=== PATIENT | female | born 1965 | race Caucasian/White ===

== ENCOUNTER 2017-10-15 22:23 | Observation (INO) | payer OTHER ==
[~2017-10-15] VITALS: Ht 177.8 cm; Wt 117.0 kg
[~2017-10-15 22:23] MED LIST: PROPOFOL 10 MG/ML, 20ML ONE; ROCURONIUM 10MG/ML,5ML ONE; SUCCINYLCHOLINE 20 MG/ML, 10ML ONE
[2017-10-15] MEDS ORDERED: LISI1TAB7 PO (22:40)
[2017-10-15] MEDS ORDERED: FENTANYL PF 250 MCG/5ML ONE (23:57)
[2017-10-15] MEDS ORDERED: MIDAZOLAM 1 MG/ML, 2ML ONE (23:57)
[2017-10-16] MEDS ORDERED: LIDOCAINE/PF 1%, 30ML ONE (00:05)
[2017-10-16] MEDS ORDERED: EPINEPHRINE 1 MG/ML, 1ML ONE (00:06)
[2017-10-16] MEDS ORDERED: OXYMETAZOLINE NASAL SPRAY 0.05%, 15ML ONE (00:10)
[2017-10-16] MEDS ORDERED: LIDOCAINE 1%, 20ML INFIL ONE (00:30)
[2017-10-16] MEDS ORDERED: BACITRACIN OINT 500U/GM, 15 GM ONE (00:49)
[2017-10-16] MEDS ORDERED: ACETAMINOPHEN 650 MG/20.3 ML UDC ONE ×2 (01:12→01:13)
[2017-10-16] MEDS ORDERED: ALBUTEROL SULFATE 2.5 MG/3 ML NPPB PRN (01:30)
[2017-10-16] MEDS ORDERED: ONDANSETRON ODT 8 MG PO PRN (01:30)
[2017-10-16] MEDS ORDERED: FENTANYL PF 100 MCG/2ML IV PRN (01:30)
[2017-10-16] MEDS ORDERED: ACETAMINOPHEN 325 MG TABLET PO PRN (01:30)
[2017-10-16] MEDS ORDERED: MORPHINE SULFATE 4 MG/ML, 1ML IVPush PRN (01:30)
[2017-10-16] MEDS ORDERED: OXYcodone 5 MG/5 ML ORAL.SOL UDC PO PRN (01:30)
[2017-10-16] MEDS ORDERED: IBUPROFEN 800 MG TABLET ONE (02:14)
[2017-10-16 02:16] VITALS: BP 124/62
[2017-10-16] MEDS ORDERED: IBUPROFEN 200 MG TABLET PO ONE (02:30)
[2017-10-16] MEDS ORDERED: CLIN300C8 PO ×2 (02:31→02:34)
== END 2017-10-16 02:50 | disposition home or self-care (01) ==
LOC: OR 23:26 → EDIP 23:45 → 4NOR 10-16 02:03
PROVIDERS: ADMIT Plastic Surgery; ATTEND Plastic Surgery
DX: S01.551A Open bite of lip, initial encounter (principal); I10 Essential (primary) hypertension; W54.0XXA Bitten by dog, initial encounter; Y93.89 Activity, other specified; Y92.89 Other specified places as the place of occurrence of the external cause; Y99.8 Other external cause status; Z23 Encounter for immunization
CPT/HCPCS: 40525; 99285; G0378; J0171; J0330; J2250; J2704; J3010; J3490